=== PATIENT | male | born 2000 | race Caucasian/White ===

== ENCOUNTER 2021-03-29 09:38 | Emergency (ER) | payer OTHER, SELFPAY ==
[2021-03-29 09:39] VITALS: BP 119/59; PULSE 72; RESP 16; TEMP 35.8; O2SAT 97; BMI 19.7
--- NOTE | 2021-03-29 09:48 | RAD_ITS ---
STUDY: X-RAY - LEFT ANKLE REASON FOR EXAM: Male, 21 years old. Injury TECHNIQUE: 3 view(s) of the ankle. COMPARISON: None. FINDINGS: Normal visualized distal tibia and fibula. Normal medial and lateral malleoli. Normal tibiotalar articulation and ankle mortise. Normal visualized talus and calcaneus. The visualized subtalar, talonavicular, calcaneocuboid and tarsal articulations are normal. The soft tissue structures are unremarkable. RAD/Ankle min 3 Views IMPRESSION: Normal x-ray examination of the ankle. Electronically Signed: Gurjit Eckert MD at 10:46 EDT , Service support ,
--- NOTE | 2021-03-29 10:00 | ED.VIS.LOWEX ---
HPI History of Present Illness Chief Complaint: Lower Extremity Injury Detail of Chief Complaint: Rolled and twisted left ankle on Sunday. 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 States he was riding a golf cart on Sunday and rolled his left ankle. Denies any other injuries. No knee or hip pain. Sounds more sore today. He is able to walk on it. Prior similar symptoms: No Recent Illness/Hospitalization: No PFSH PFSH Home Medications NK 05/28/19 [History Last Taken Unknown] Allergy/AdvReac Type Severity Reaction Status Date / Time No Known Allergies Allergy Unverified 03/29/21 09:40 Social History Smoking Status: Never smoker ROS ROS ED ROS Narrative Denies recent illness. Review of Systems ROS Unobtainable: Denies due to encephalopathy Constitutional Constitutional ED: Denies chills or fever(s) Eyes Eyes: Denies change in vision ENT ENT ED: Denies ear pain or sore throat Cardiovascular Cardiovascular: Denies chest pain Respiratory/Chest Respiratory/Chest: Denies cough or dyspnea Gastrointestinal Gastrointestinal: Denies abdominal pain, diarrhea, nausea or vomiting Genitourinary Genitourinary ED: Denies dysuria Musculoskeletal Musculoskeletal: Denies myalgias Integumentary Denies rash Neurologic Neurologic: Denies headache(s) Psychiatric Psychiatric: Denies depression Endocrine Endocrinology: Denies polyuria Hematologic/Lymphatic Hematologic/Lymphatic: Denies easy bruising Allergic/Immunologic Allergic/Immunologic ED: Denies urticaria EXAM Physical Exam Narrative Exam Narrative: 21-year-old male no acute distress vital signs stable afebrile. Exam normal except left lateral ankle mildly swollen. Mildly tender. Dorsi and plantar flexion intact. DP pulse intact. Achilles tendon intact. No gross bony deformity. Medial malleolus nontender. Foot nontender neurovascular intact. Able to wiggle his toes. Normal touch sensation. Const Vital Signs: 03/29/21 09:39 Temperature 96.5 F L Temperature Source Temporal Pulse Rate 72 Respiratory Rate 16 Blood Pressure 119/59 L Blood Pressure Mean 79 Pulse Ox 97 Oxygen Delivery Method Room Air Positive well nourished and well developed; Negative for obese, cachectic, contractures or unkempt General Appearance ED: well developed and NAD; Negative for unkempt, cachectic or contractures Nutritional Appearance: Negative for cachectic or obese HEENT Reports moist mucous membranes normocephalic and atraumatic; Negative for trauma or tenderness Eyes PERRL Neck full ROM and supple Thyroid: Negative for tender Chest Wall inspection of chest normal and palpation of chest normal Resp normal respiratory effort, no retractions and clear to auscultation bilaterally Auscultation: Negative for rales, rhonchi or wheezes Cardio regular rate, regular rhythm, S1 normal heart sound, S2 normal heart sound and no murmurs GI non-tender, non-distended and no masses Auscultation: normoactive bowel sounds Palpation: soft; Negative for tender Back/Spine no CVA tenderness General Back: Negative for CVA tenderness Cervical Spine: Negative for cervical spine tenderness Extremity normal to inspection and full ROM Extremity Narrative: Except left lateral malleolus mildly tender mildly swollen. Normal range of motion. Left foot neurovascular intact. Kellys tendon intact. General Extremety ED: Negative for cyanosis or edema General Extremity: Negative for cyanosis or edema Neuro oriented x3 and moves all extremities Sensorium / Orientation: alert, oriented to person, oriented to place and oriented to time; Negative for orientation impaired, lethargic or stuporous Motor Exam: strength 5/5 throughout Psych mental status grossly normal Appearance: Negative for unkempt Skin no wounds Lesions: no lesions Rashes: no rashes Trauma: Negative for abrasion or laceration MDM MDM MDM Narrative Medical decision making narrative: Young male rolled his left ankle most likely sprain x-ray being obtained. Radiography Diagnostic Testing: Left ankle x-ray 3 views interpreted by myself. Shows no acute abnormality. No fracture or dislocation. Discharge Plan Triage Chief Complaint: Lower Extremity Injury ED Provider: Jignesh Boyd Dx/Rx/DC Orders Clinical Impression: Left ankle sprain Instructions: ED Sprain Ankle W X Ray Prescriptions: No Action NK RF: 0 Primary Care Provider: Duyen Bocanegra Referrals: Kota Montoya MD [NON-STAFF] - 1 Week if not improving Activity Restrictions/Additional Instructions: Ice and elevate left ankle to decrease pain and swelling. Motrin for pain and swelling. Tylenol is okay for pain. Increase activity as tolerated. Follow-up with your doctor if not improving. Disposition Disposition: Home, Self Care
== END 2021-03-29 10:57 | disposition home or self-care (01) ==
LOC: ED 10:23
PROVIDERS: Emergency Provider Emergency Medicine; PCP Family Medicine
DX: S93.402A Sprain of unspecified ligament of left ankle, initial encounter (principal); X50.1XXA Overexertion from prolonged static or awkward postures, initial encounter; Y93.I9 Activity, other involving external motion; Y92.89 Other specified places as the place of occurrence of the external cause; Y99.8 Other external cause status
CPT/HCPCS: 73610; 99282

== ENCOUNTER 2021-06-02 17:24 | Observation (INO) | payer OTHER, SELFPAY ==
[2021-06-02] VITALS (7 sets, daily range): BP systolic 120–137; BP diastolic 72–89; PULSE 52–90; RESP 16–18; TEMP 36.2–37.2; O2SAT 96–99; BMI 20.4; BMI 19.1; BMI 21.0
--- NOTE | 2021-06-02 | APP_PTH ---
PATIENT: RANDY NIXON III LOC: [facility] U#:[id number] AGE/SX: 21/M ROOM: [facility] RE06/02/[address]: Dr. Vic Rhodes MD : 2000 BED: 1 DIS: 06/03/2021 SPEC #: [id number] RECD: 06/03/21 09:52 STATUS: FAYE REYESHomero #: [id number] JONY: 06/02/21 00:[address]: Vic Rhodes DEPT: SURGICAL PATHOLOGY RECD BY: Chuckie Gregory ENTERED: 06/03/21 09:52 SP TYPE: APPENDIX OTHR DR: Dr. Duyen Bocanegra, DO Tissues: Appendix, NOS Procedures: Surgery Specimen Level III HEADER OPERATION: Laparoscopic appendectomy PRE-OP DIAGNOSIS: Acute appendicitis TISSUE SUBMITTED: Appendix MICROSCOPIC DIAGNOSIS Appendix, appendectomy: Acute necrotizing appendicitis. Acute serositis. AM:davis 06/06/2021 MICROSCOPIC DESCRIPTION Slides are reviewed. GROSS DESCRIPTION Received in fixative is one container labeled with the patient's name and designated appendix. The specimen consists of an L-shaped appendix measuring 6 cm in length and up to 1 cm in diameter. The serosa is congested. No obvious perforation is identified. The mucosa is congested and hemorrhagic. No fecalith is identified. [employer] sections are submitted in one cassette. / SJ:rg 06/03/21 TC:2 CPT: 39541
--- NOTE | 2021-06-02 17:43 | CT_ITS ---
STUDY: CT ABDOMEN AND PELVIS WITH CONTRAST REASON FOR EXAM: Male, 21 years old. Right lower quadrant abdominal pain beginning yesterday. RADIATION DOSAGE (If Supplied By Facility): CTDIvol = ( 7.64 ) mGy, DLP = ( 258.50 ) mGycm TECHNIQUE: Transaxial images were obtained from the dome of the diaphragm to the symphysis pubis with oral contrast. 100 mL of ISOVUE-370 was administered. Sagittal and coronal images were reconstructed. Individualized dose optimization techniques were used for this CT. COMPARISON: None. FINDINGS: The visualized lung bases are unremarkable. The visualized portions of the heart are within normal limits. Normal liver. Normal gallbladder and extrahepatic biliary system. Normal spleen. Normal pancreas. Normal bilateral adrenal glands. Normal right kidney. Normal left kidney. Normal visualized stomach. Normal small intestine. Normal colon. There is a tubular structure in the right lower quadrant anterior to the psoas muscle measuring 1 cm in diameter. The wall measures 2-3 mm with fluid-filled lumen. This has the appearance of an enlarged appendix. This is best seen on image 75 of series 2 and on image 35 of series 601. Normal abdominal aorta. Normal inferior vena cava. Normal retroperitoneum. Normal urinary bladder. Normal prostate. No pelvic lymphadenopathy. No free air or free fluid is seen within the peritoneal cavity. Normal abdominal wall. Normal osseous structures. CT/Abdomen/Pelvis WITH Contrast IMPRESSION: No prominence of the appendix. The possibility of mild appendicitis cannot be ruled out. Otherwise normal CT of the abdomen and pelvis. N.B. : The above Results were Read Back by Subhash Castañeda DO to Vic Carrion MD, and understanding confirmed on 06/02/2021 19:42:28 (ET). Electronically Signed: Subhash Castañeda DO at 19:43 EST Tel [phone], Service support ,
--- NOTE | 2021-06-02 17:44 | ED.VIS.GI ---
HPI HPI - GI History of Present Illness Chief Complaint: Abd Pain Narrative Narrative: Patient presenting for evaluation secondary to abdominal pain. Patient states that over the weekend on Sunday he had an onset of abdominal pain. He reports that it just lasted through the evening and then spontaneously resolved. He states that throughout the course of the week he is actually been feeling well, but yesterday he had a reemergence of the abdominal pain. He states it is in his right lower quadrant and is a waxing and waning type pain. Patient states that pain is worse with palpation as well as with going over bumps in the car. He denies other associated symptoms such as appetite change nausea vomiting diarrhea dysuria hematuria. Denies any radiation to his groin or testicles. Is never had prior similar symptoms in the past. 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 Review of systems otherwise negative. PFSH PFS Home Medications NK 05/28/19 [History Last Taken Unknown] Allergy/AdvReac Type Severity Reaction Status Date / Time No Known Allergies Allergy Verified 06/02/21 17:25 Social History Smoking Status: Never smoker ROS ROS ED Constitutional Constitutional ED: Denies chills or fever(s) ENT ENT ED: Denies sore throat Cardiovascular Cardiovascular: Denies chest pain Respiratory/Chest Respiratory/Chest: Denies cough or dyspnea Gastrointestinal Gastrointestinal: Reports abdominal pain Genitourinary Genitourinary ED: Denies dysuria, hematuria or urinary frequency Musculoskeletal Musculoskeletal: Denies myalgias Integumentary Denies rash Neurologic Neurologic: Denies paresthesias or weakness Psychiatric Psychiatric: Denies depression Endocrine Endocrinology: Denies polyuria Hematologic/Lymphatic Hematologic/Lymphatic: Denies easy bleeding or easy bruising Allergic/Immunologic Allergic/Immunologic ED: Denies urticaria EXAM Physical Exam Const Vital Signs: 06/02/21 17:24 Temperature 97.9 F Temperature Source Temporal Pulse Rate 90 Respiratory Rate 16 Blood Pressure 129/89 H Blood Pressure Mean 102 Pulse Ox 96 Oxygen Delivery Method Room Air Positive well nourished and well developed General Appearance ED: well developed and NAD HEENT normocephalic and atraumatic Eyes EOMs intact bilaterally General Eye ED: Negative for pale conjunctiva or scleral icterus Neck no lymphadenopathy and supple Resp normal respiratory effort and clear to auscultation bilaterally Cardio regular rate, regular rhythm, no murmurs and peripheral pulses 2+ throughout GI non-distended and no masses GI Narrative: Negative obturator and heel strike sign Palpation: soft and tender RLQ; Negative for guarding, rigid or rebound tenderness present Back/Spine no CVA tenderness Extremity full ROM General Extremety ED: Negative for edema General Extremity: Negative for edema Neuro moves all extremities and no sensory deficits noted Sensorium / Orientation: alert, oriented to person, oriented to place and oriented to time Motor Exam: strength 5/5 throughout Psych mental status grossly normal Skin Rashes: no rashes MDM MDM MDM Narrative Medical decision making narrative: Patient presented secondary to right lower quadrant abdominal pain. I was concerned for the possibility of appendicitis. IV was status laboratory studies were obtained. CBC demonstrates modest leukocytosis at 11.1. CT abdomen and pelvis was discussed with radiology, and does show some enlargement of the patient's appendix consistent with early appendicitis. Patient was ordered Zosyn in the emergency department he was kept n.p.o. I discussed patient's case with general surgery, patient will be admitted for definitive management. Lab Data Labs: Laboratory Results - last 24 hr 06/02/21 06/02/21 17:39 17:39 WBC 11.1 H RBC 5.27 Hgb 16.4 Hct 46.8 MCV 88.8 MCH 31.1 MCHC 35.0 RDW Std Deviation 38.3 RDW Coeff of Richard 11.8 Plt Count 215 MPV 11.0 Immature Gran % (Auto) 0.300 Neut % (Auto) 62.4 Lymph % (Auto) 27.6 [place] % (Auto) 8.0 Eos % (Auto) 1.3 Baso % (Auto) 0.4 Absolute Neuts (auto) 7.0 Absolute Lymphs (auto) 3.08 Nucleated RBC % 0 Sodium 137 Potassium 4.2 Chloride 102 Carbon Dioxide 28.0 Anion Gap 7 BUN 19 H Creatinine 1.02 Estim Creat Clear Calc 85.46 Est GFR (MDRD) Af Amer 119 Est GFR (MDRD) Non-Af 99 BUN/Creatinine Ratio 18.6 Glucose 87 Calcium 9.6 Radiography Diagnostic Testing: Clinical Impression(s) from Imaging Studies Abdomen/Pelvis CT 06/02/21 17:43 IMPRESSION: No prominence of the appendix. The possibility of mild appendicitis cannot be ruled out. Otherwise normal CT of the abdomen and pelvis. N.B. : The above Results were Read Back by Subhash Castañeda DO to Vic Carrion MD, and understanding confirmed on 06/02/2021 19:42:28 (ET). Electronically Signed: Subhash Castañeda DO at 19:43 EST Tel [phone], Service support , ADDENDUM: 06/02/21 1950 IMPRESSION: No prominence of the appendix. The possibility of mild appendicitis cannot be ruled out. Otherwise normal CT of the abdomen and pelvis. N.B. : The above Results were Read Back by Subhash Castañeda DO to Vic Carrion MD, and understanding confirmed on 06/02/2021 19:42:28 (ET). Electronically Signed: Subhash Castañeda DO at 19:43 EST Tel [phone], Service support , Discharge Plan Triage Chief Complaint: Abd Pain ED Provider: Vic Carrion Dx/Rx/DC Orders Clinical Impression: Acute appendicitis Prescriptions: No Action NK RF: 0 Primary Care Provider: Duyen Bocanegra Referrals: Duyen Bocanegra DO [Primary Care Provider] - Disposition Disposition: Acute Care [facility]
[2021-06-02 18:08] LABS: Absolute Lymphocyte Count 3.08 X10^3/uL (0.83-4.51); Basophil# 0.04 X10^3/uL; Basophil% 0.4 % (0-1); Eosinophil# 0.15 X10^3/uL; Eosinophils% 1.3 % (0-5); Hematocrit 46.8 % (40-54); Hemoglobin 16.4 g/dL (13.0-16.5); Lymphocyte # 3.08 X10^3/ul (0.83-4.51); Lymphocyte % 27.6 % (19-41); Mean Corpuscular Hgb 31.1 pg (27.0-32.0); Mean Corpuscular Volume 88.8 fL (80-94); Monocyte# 0.89 X10^3/uL; NRBC Flagged by Analyzer 0 % (0-5); Neutrophil # 6.95 X10^3/uL (2.7-7.7); Neutrophil % 62.4 % (47-70); Platelet Count 215 K/mm3 (150-450); RBC Distribution Width CV 11.8 % (11.6-14.6); RBC Distribution Width SD 38.3 fl (35.1-43.9); Red Blood Count 5.27 M/mm3 (4.6-6.2); White Blood Count 11.1 K/mm3 (4.4-11.0)
[2021-06-02] MEDS: 0.9% Normal Saline 1,000 ML 125 ML IV (18:23)
[2021-06-02 18:44] LABS: Anion Gap 7 (5-15); BUN 19 mg/dL (7-18); BUN/Creat Ratio 18.6 RATIO (10-20); Calcium,Total 9.6 mg/dL (8.5-10.1); Chloride 102 mmol/L (98-107); Creatinine, Serum 1.02 mg/dL (0.70-1.30); EST Glomerular Filtration Rate 99 mL/min (>60); Est Glom Filt Rate - Afr Amer 119 mL/min (>60); Estimated Creatinine Clearance 85.46 ml/min; Glucose 87 mg/dL (74-106); Potassium 4.2 mmol/L (3.5-5.1); Sodium Level 137 mmol/L (136-145)
--- NOTE | 2021-06-02 20:46 | PCM.HP.STD ---
HPI - General HPI Narrative RANDY NIXON, is a 21 M who presents to [facility] ER with complaints of 24 hours of acute?onset abdominal pain. He states that this pain began yesterday and was diffuse in nature across his mid abdomen. It kept him in bed all day. The pain then continued into today but became more localized in his right lower quadrant. There are no associated symptoms of nausea or changes in his bowel habits. His mother, who accompanies him, states that he was running a low-grade fever of 99 Fahrenheit. ER work-up is notable for laboratories that showed mild leukocytosis of 11,[address] imaging demonstrates a fluid?filled tubular structure anterior to the psoas muscle, cannot exclude mild appendicitis. PFS Home Medications NK 05/28/19 [History Last Taken Unknown] Allergy/AdvReac Type Severity Reaction Status Date / Time No Known Allergies Allergy Verified 06/02/21 17:25 Social History Smoking Status: Never smoker Vital Signs Vital Signs Vital Signs: 06/02/21 17:24 Temperature 97.9 F Temperature Source Temporal Pulse Rate 90 Respiratory Rate 16 Blood Pressure 129/89 H Blood Pressure Mean 102 Pulse Ox 96 Oxygen Delivery Method Room Air Weight Weight: 115 lb 4.828 oz Body Mass Index (BMI) 20.4 Physical Exam Const alert, oriented x3 and no apparent distress General Appearance: cooperative Resp normal respiratory effort GI GI Narrative: Slender, 2 cm transverse incision in the right upper quadrant which mother states is from pediatric heart surgery. Otherwise there are no scars. Patient's abdomen is nondistended. He is tender over McBurney's point. Psoas and obturator signs are negative. Results Lab / Micro Data Result Diagrams: 06/02/21 17:39 06/02/21 17:39 Labs: Laboratory Results - last 24 hr 06/02/21 17:39: WBC 11.1 H, RBC 5.27, Hgb 16.4, Hct 46.8, MCV 88.8, MCH 31.1, MCHC 35.0, RDW Std Deviation 38.3, RDW Coeff of Richard 11.8, Plt Count 215, MPV 11.0, Immature Gran % (Auto) 0.300, Neut % (Auto) 62.4, Lymph % (Auto) 27.6, [place] % (Auto) 8.0, Eos % (Auto) 1.3, Baso % (Auto) 0.4, Absolute Neuts (auto) 7.0, Absolute Lymphs (auto) 3.08, Nucleated RBC % 0 06/02/21 17:39: Sodium 137, Potassium 4.2, Chloride 102, Carbon Dioxide 28.0, Anion Gap 7, BUN 19 H, Creatinine 1.02, Estim Creat Clear Calc 85.46, Est GFR (MDRD) Af Amer 119, Est GFR (MDRD) Non-Af 99, BUN/Creatinine Ratio 18.6, Glucose 87, Calcium 9.6 Radiology Impression Abdomen/Pelvis CT 06/02/21 17:43 IMPRESSION: No prominence of the appendix. The possibility of mild appendicitis cannot be ruled out. Otherwise normal CT of the abdomen and pelvis. N.B. : The above Results were Read Back by Subhash Castañeda DO to Vic Carrion MD, and understanding confirmed on 06/02/2021 19:42:28 (ET). Electronically Signed: Subhash Castañeda DO at 19:43 EST Tel [phone], Service support , ADDENDUM: 06/02/21 1950 IMPRESSION: No prominence of the appendix. The possibility of mild appendicitis cannot be ruled out. Otherwise normal CT of the abdomen and pelvis. N.B. : The above Results were Read Back by Subhash Castañeda DO to Vic Carrion MD, and understanding confirmed on 06/02/2021 19:42:28 (ET). Electronically Signed: Subhash Castañeda DO at 19:43 EST Tel [phone], Service support , Assessment & Plan Assessment/Plan (1) Acute appendicitis: QUALIFIERS: Acute appendicitis type: with localized peritonitis Appendicitis gangrene presence: unspecified whether gangrene present Appendicitis perforation presence: unspecified whether perforation present Appendicitis abscess presence: unspecified whether abscess present Qualified Code(s): K35.30 - Acute appendicitis with localized peritonitis, without perforation or gangrene PLAN: This is a 21-year-old male who presents with 24-hour history of acute?onset abdominal pain that has become localized to the right lower quadrant. His presentation is associated with leukocytosis of 11,000, and CT imaging that visualizes a mildly?dilated tubular structure anterior to the psoas. The above, and patient's exam with tenderness at McBurney's point are consistent with the diagnosis of acute appendicitis. I discussed with both patient and his mother this impression and recommended a laparoscopic appendectomy. I did introduce the role of antibiotics in the treatment of acute appendicitis and the findings of the recent [place] DA trial. They expressed understanding of this information and received my recommendation. They would like to proceed with emergent laparoscopic appendectomy as recommended. Patient is n.p.o. appropriate. IV antibiotics have been ordered. Given the later hour, we will plan to admit the patient to observation status postoperatively. Charges/Coding Visit Charges Inpatient E&M: 44723 Init Hosp L2
[2021-06-02] MEDS: Bupivacaine Mpf 0.5% 30 ML VIAL (22:20)
--- NOTE | 2021-06-02 22:29 | PCM.OPRPT ---
Problems Associated Problem List Diagnoses (1) Acute appendicitis: Report of Operation Date of Procedure: 06/02/21 Pre-Operative Diagnosis: Appendicitis Post-Operative Diagnosis: Same, without perforation Surgery/Procedure Performed:: Laparoscopic appendectomy Description of Surgical Findings:: ?Mildly inflamed, mildly dilated appendix Surgeon: Vic Rhodes room service manager: None Type of Anesthesia: General/Supplemental Anesthesiologist: Jared Henley Specimen's removed: Appendix Drains: NA Estimated Blood Loss (mL): <25 Description of Procedure: After appropriate notification in the preoperative holding area, the patient was brought to the operating room and placed supine on the operating room table. Antibiotics had been preoperatively administered in the emergency room. We ensured the patient had voided prior to coming to the operating room. Patient was then induced with general endotracheal anesthetic. The abdomen was clipped of interfering hair then prepped and draped in usual sterile fashion. Formal timeout was conducted to confirm both the patient and the procedure. A supraumbilical incision was made and carried down to the level of the fascia which was sharply opened. After opening the peritoneum in like fashion a finger sweep was made to confirm our position, and a balloon trocar was placed. Pneumoperitoneum was established to 15 mmHg. Patient was positioned in Trendelenburg with the left side down. 2 additional 5 mm trocars were placed in the left lower quadrant and suprapubic positions under laparoscopic visualization. The peritoneum was inspected and there are no signs of inadvertent injury from this Phan entry. The appendix was visualized with mild dilatation and inflammation. Using blunt laparoscopic dissection, a window was made in the mesoappendix adjacent to the appendiceal base. The mesoappendix was divided with application of a laparoscopic harmonic. Then the base of the appendix was sealed and amputated with the use of an Endo MIKE stapler. The appendix was placed in an Endo Catch bag. The staple line was inspected for hemostasis. After hemostasis was confirmed the appendix was removed from the umbilical port site. Pneumoperitoneum was then evacuated and the supraumbilical port site fascia was closed with 0 Vicryl in an interrupted fashion. The port sites were infiltrated with 17 mL local anesthetic (0.5% bupivacaine). The skin of each port site was closed with 4-0 Monocryl in a subcuticular fashion. Steri-Strips and OpSite dressings were applied. Patient tolerated procedure well without any apparent complications. They were awoken from general anesthetic without issue and transferred to post anesthesia care unit for ongoing recovery. Complications None Admit VTE Documentation VTE Mechan Device Prophylaxis: SCD's VTE Pharm Prophylaxis ordered?: No Procedures Digestive 40xxx-49xxx: 66663 Laparoscopy appendectomy
[2021-06-02] MEDS: Lactated Ringers 1,000 ML 25 ML IV (22:49)
--- NOTE | 2021-06-02 23:12 | PCS.PANDOC ---
PANDEMIC DOCUMENTATION INITIATED: Date: 03/07/2021 Time: 190
[2021-06-02] MEDS: Acetaminophen 325 MG Tablet 650 MG PO (23:32)
[2021-06-03 03:19] VITALS: BP 101/60; PULSE 52; RESP 16; TEMP 36.7; O2SAT 96
--- NOTE | 2021-06-03 06:18 | PCM.PN.SRG ---
Subjective Subjective Patient seen and examined during AM rounds. He reports that he has some mild soreness but overall feels better than prior to surgery. He tolerated clear liquids overnight but is now expressing desire for more regular diet. Objective Data Objective Data Vital Signs: Vital Signs Temp Pulse Resp BP Pulse Ox 98.1 F 52 L 16 101/60 96 06/03/21 03:19 06/03/21 03:19 06/03/21 03:19 06/03/21 03:19 06/03/21 03:19 Oxygen Delivery Method Room Air Weight: 119 lb 0.794 oz Body Mass Index (BMI) 21.0 Intake & Output: Intake and Output for Last 24 Hours 06/01/21 06/02/21 06/03/21 23:59 23:59 23:59 Intake Total 1170 / 1170 Output Total 0 / 0 Balance 1170 / 1170 Lab / Micro Data Result Diagrams: 06/03/21 05:50 06/02/21 17:39 Labs: Laboratory Results - last 24 hr 06/02/21 17:39: WBC 11.1 H, RBC 5.27, Hgb 16.4, Hct 46.8, MCV 88.8, MCH 31.1, MCHC 35.0, RDW Std Deviation 38.3, RDW Coeff of Richard 11.8, Plt Count 215, MPV 11.0, Immature Gran % (Auto) 0.300, Neut % (Auto) 62.4, Lymph % (Auto) 27.6, [place] % (Auto) 8.0, Eos % (Auto) 1.3, Baso % (Auto) 0.4, Absolute Neuts (auto) 7.0, Absolute Lymphs (auto) 3.08, Nucleated RBC % 0 06/02/21 17:39: Sodium 137, Potassium 4.2, Chloride 102, Carbon Dioxide 28.0, Anion Gap 7, BUN 19 H, Creatinine 1.02, Estim Creat Clear Calc 85.46, Est GFR (MDRD) Af Amer 119, Est GFR (MDRD) Non-Af 99, BUN/Creatinine Ratio 18.6, Glucose 87, Calcium 9.6 Micro: Microbiology 06/02/21 21:06 Nasal Secretion SARS-CoV-2 Antigen (Rapid) - Final Radiography Diagnostic Testing: Radiology Impression Abdomen/Pelvis CT 06/02/21 17:43 IMPRESSION: No prominence of the appendix. The possibility of mild appendicitis cannot be ruled out. Otherwise normal CT of the abdomen and pelvis. N.B. : The above Results were Read Back by Subhash Castañeda DO to Vic Carrion MD, and understanding confirmed on 06/02/2021 19:42:28 (ET). Electronically Signed: Subhash Castañeda DO at 19:43 EST Tel [phone], Service support , ADDENDUM: 06/02/211949 IMPRESSION: No prominence of the appendix. The possibility of mild appendicitis cannot be ruled out. Otherwise normal CT of the abdomen and pelvis. N.B. : The above Results were Read Back by Subhash Castañeda DO to Vic Carrion MD, and understanding confirmed on 06/02/2021 19:42:28 (ET). Electronically Signed: Subhash Castañeda DO at 19:43 EST Tel [phone], Service support , Physical Exam Resp normal respiratory effort GI GI Narrative: Operative dressings are intact with very small amount of sanguinous drainage. Abdomen is nondistended; soft and appropriately tender about port site incisions. Assessment & Plan Assessment/Plan (1) Acute appendicitis: QUALIFIERS: Acute appendicitis type: with localized peritonitis Appendicitis gangrene presence: unspecified whether gangrene present Appendicitis perforation presence: unspecified whether perforation present Appendicitis abscess presence: unspecified whether abscess present Qualified Code(s): K35.30 - Acute appendicitis with localized peritonitis, without perforation or gangrene PLAN: Postop day 1 from laparoscopic appendectomy. Patient recovering well/as expected. Will advance diet today. Plan to discharge around lunchtime. Patient provided wound care instructions. I would like to follow-up with him in clinic in 1 week post hospital discharge. Charges/Coding Visit Charges Inpatient E&M: 97924 Subs Hosp L2
[2021-06-03 06:53] LABS: Absolute Neutrophil Count 6.8 X10^3/uL (2.0-7.7); Basophil# 0.04 X10^3/uL; Basophil% 0.4 % (0-1); Eosinophil# 0.12 X10^3/uL; Eosinophils% 1.2 % (0-5); Hematocrit 39.1 % (40-54); Hemoglobin 13.7 g/dL (13.0-16.5); Lymphocyte % 18.7 % (19-41); Mean Corpuscular Hgb 31.6 pg (27.0-32.0); Mean Corpuscular Volume 90.1 fL (80-94); Mean Platelet Vol. 10.8 fl (6.2-12.0); Monocyte# 0.87 X10^3/uL; NRBC Flagged by Analyzer 0 % (0-5); Neutrophil # 6.77 X10^3/uL (2.7-7.7); Neutrophil % 70.2 % (47-70); Platelet Count 164 K/mm3 (150-450); RBC Distribution Width CV 11.9 % (11.6-14.6); RBC Distribution Width SD 39.1 fl (35.1-43.9); Red Blood Count 4.34 M/mm3 (4.6-6.2); White Blood Count 9.7 K/mm3 (4.4-11.0)
[2021-06-03 09:13] VITALS: BP 107/66; PULSE 50; RESP 14; TEMP 35.9; O2SAT 95
[2021-06-03] MEDS: Acetaminophen 325 MG Tablet 650 MG PO (09:18)
--- NOTE | 2021-06-03 10:17 | PCM.DC ---
Discharge Instructions Diet Discharge Diet: No restrictions Activity Discharge Activity: May Not Drive (While taking narcotic pain medication) May shower in (days): 1 Ice area for (Minutes): 20 Lifting Restrictions: No lifting greater than 15 pounds for 2 weeks after surgery Dressing / Incision Call your doctor if your incision/area has: Continuous Slow Oozing, Increased Redness, Foul Smelling Discharge and Swelling at the incision site Call your doctor if you observe: Fever of 101 or Higher Suture Line Care: Avoid Pulling/Pushing Remove Dressing in: 1 day (Please leave Steri-Strips intact until they fall off spontaneously or are taken off at your follow-up visit) Cleanse incision/area with: Soap & Water Follow Up Care Please Follow Up With: Vic Rhodes MD When: 7-10 days Test Results: Test results from this visit will be discussed in further detail at your follow-up appointment, if applicable. Discharge Plan Admission Admit Date/Time: 06/02/21 21:31 Primary Reason for Your Visit: Acute appendicitis Attending Provider: Vic Rhodes Primary Care Provider: Duyen Bocanegra Instructions Patient Instructions: Appendectomy Laparoscopic Dc Discharge Orders/Prescriptions Prescriptions: New oxycodone 5 mg Tablet 5 mg PO Q6H PRN PRN (Reason: Pain Score 4-10) 5 Days Qty: 14 RF: 0 Referrals / Follow Up: Duyen Bocanegra DO [Primary Care Provider] -
--- NOTE | 2021-06-03 10:27 | DS.PCM_ITS ---
Providers Date of Admission: 06/02/21 Primary Care Physician: Dr. Duyen Bocanegra DO Reason For Visit: APPY Diagnosis Discharge Diagnosis (1) Acute appendicitis: Status: Acute Code(s): K35.80 - Unspecified acute appendicitis Qualifiers: Acute appendicitis type: with localized peritonitis Appendicitis gangrene presence: unspecified whether gangrene present Appendicitis perforation presence: unspecified whether perforation present Appendicitis abscess presence: unspecified whether abscess present Qualified Code(s): K35.30 - Acute appendicitis with localized peritonitis, without perforation or gangrene Medications at Discharge Home Medications oxycodone 5 mg PO Q6H PRN PRN 5 Days #14 tab 06/03/21 Hospital Course Operations appendectomy Summary of Care Provided Hospital Course: Patient underwent emergent laparoscopic appendectomy after presentation to [facility] ER on 06/02/2021 with 24-hour history of abdominal pain that became localized to right lower quadrant. On exam he had evidence of localized peritonitis. Additionally, he had a mild leukocytosis and CT of the abdomen pelvis could not fully exclude mild appendicitis. The operation proceeded uneventfully and the patient was admitted for observation given the late hour. By postoperative day 1 patient's pain was described as mild soreness but overall he felt better. He requested a regular diet and this request was granted. Once he proved tolerance of this diet, he was also granted discharge. Wound care instructions were reviewed and a postoperative follow-up was requested within 7 to 10 days of post hospital discharge. Weight / BMI Weight Weight: 119 lb 0.794 oz Body Mass Index (BMI) 21.0 ABG / Lab / Microbiology Data Result Diagrams: 06/03/21 05:50 06/02/21 17:39 Laboratory: Laboratory Results - last 24 hr 06/02/21 17:39: WBC 11.1 H, RBC 5.27, Hgb 16.4, Hct 46.8, MCV 88.8, MCH 31.1, MCHC 35.0, RDW Std Deviation 38.3, RDW Coeff of Richard 11.8, Plt Count 215, MPV 11.0, Immature Gran % (Auto) 0.300, Neut % (Auto) 62.4, Lymph % (Auto) 27.6, [place] % (Auto) 8.0, Eos % (Auto) 1.3, Baso % (Auto) 0.4, Absolute Neuts (auto) 7.0, Absolute Lymphs (auto) 3.08, Nucleated RBC % 0 06/02/21 17:39: Sodium 137, Potassium 4.2, Chloride 102, Carbon Dioxide 28.0, Anion Gap 7, BUN 19 H, Creatinine 1.02, Estim Creat Clear Calc 85.46, Est GFR (MDRD) Af Amer 119, Est GFR (MDRD) Non-Af 99, BUN/Creatinine Ratio 18.6, Glucose 87, Calcium 9.6 06/03/21 05:50: WBC 9.7, RBC 4.34 L, Hgb 13.7, Hct 39.1 L, MCV 90.1, MCH 31.6, MCHC 35.0, RDW Std Deviation 39.1, RDW Coeff of Richard 11.9, Plt Count 164, MPV 10.8, Immature Gran % (Auto) 0.500, Neut % (Auto) 70.2 H, Lymph % (Auto) 18.7 L, [place] % (Auto) 9.0, Eos % (Auto) 1.2, Baso % (Auto) 0.4, Absolute Neuts (auto) 6.8, Absolute Lymphs (auto) 1.80, Nucleated RBC % 0 Microbiology: Microbiology 06/02/21 21:06 Nasal Secretion SARS-CoV-2 Antigen (Rapid) - Final Radiography Diagnostic Testing: Radiology Impression Abdomen/Pelvis CT 06/02/21 17:43 IMPRESSION: No prominence of the appendix. The possibility of mild appendicitis cannot be ruled out. Otherwise normal CT of the abdomen and pelvis. N.B. : The above Results were Read Back by Subhash Castañeda DO to Vic Carrion MD, and understanding confirmed on 06/02/2021 19:42:28 (ET). Electronically Signed: Subhash Castañeda DO at 19:43 EST Tel [phone], Service support , ADDENDUM: 06/02/21 1950 IMPRESSION: No prominence of the appendix. The possibility of mild appendicitis cannot be ruled out. Otherwise normal CT of the abdomen and pelvis. N.B. : The above Results were Read Back by Subhash Castañeda DO to Vic Carrion MD, and understanding confirmed on 06/02/2021 19:42:28 (ET). Electronically Signed: Subhash Castañeda DO at 19:43 EST Tel [phone], Service support , D/C Instructions Discharge Diet: No restrictions May shower in (days): 1 Ice area for (Minutes): 20 Call your doctor if your incision/area has: Continuous Slow Oozing, Increased Redness, Foul Smelling Discharge and Swelling at the incision site Call your doctor if you observe: Fever of 101 or Higher Suture Line Care: Avoid Pulling/Pushing Cleanse incision/area with: Soap & Water Please Follow Up With: Vic Rhodes MD When: 7-10 days Meaningful Use Info Meaningful Use Diagnoses (Choose all that apply): None applicable Discharge Plan Admission Admit Date/Time: 06/02/21 21:31 Primary Reason for Your Visit: Acute appendicitis Attending Provider: Vic Rhodes Primary Care Provider: Duyen Bocanegra Instructions Patient Instructions: Appendectomy Laparoscopic Dc Discharge Orders/Prescriptions Prescriptions: New oxycodone 5 mg Tablet 5 mg PO Q6H PRN PRN (Reason: Pain Score 4-10) 5 Days Qty: 14 RF: 0 Referrals / Follow Up: Duyen Bocanegra DO [Primary Care Provider] - Disposition Discharge Orders: Discharge Patient (Routine); Ordered 06/03/21 Ordered By: Dr. Vic Rhodes
--- NOTE | 2021-06-03 10:44 | PHA.DC.COU ---
Pharmacy Services has performed discharge medication counseling for this patient. The patient was counseled on the following discharge medications and changes in medications for homegoing review. 1. OXYCODONE The Reason for Use, instructions for use, and potential side effects were reviewed for all new medications. The patient's questions regarding all of their medications were answered. The patient was able to verbally demonstrate an understanding of their discharge medications.
== END 2021-06-03 10:26 | disposition home or self-care (01) ==
LOC: ED 21:05 → SDC 21:08 → AC 21:09 → SDC 21:10 → PCU 22:32
PROVIDERS: Admitting Provider Surgery; Emergency Provider Emergency Medicine; PCP Family Medicine; Referring Provider Surgery; Visit Provider Surgery
PROC: 0DTJ4ZZ Resection of Appendix, Percutaneous Endoscopic Approach (ICD-10-PCS; CPT 44970; principal; 2021-06-02 21:00)
DX: K35.30 Acute appendicitis with localized peritonitis, without perforation or gangrene (principal)
CPT/HCPCS: 00840; 44970; 36415; 74177; 80048; 85025; 87426; 88304; 99218; 99284; J7030; J7120; Q9967; A4216; G0378; J2405